=== PATIENT | female | born 1955 | race Caucasian/White ===

== ENCOUNTER → 2023-08-09 | Outpatient (CLI) | payer OTHER ==
[2023-08-09 21:15] LABS: Basophils # (A) 0.07 X 10*3/uL (0.00-0.10); Eosinophils # (A) 0.21 X 10*3/uL (0.04-0.35); Eosinophils % (A) 3.1 %; HCT 40.1 % (37.2-46.3); HGB 12.9 g/dL (12.0-15.0); Lymphocytes # (A) 2.51 X 10*3/uL (0.90-5.00); Lymphocytes % (A) 36.6 %; MCH 28.5 pg (27.0-32.0); MCHC 32.2 g/dL (32.0-37.0); MCV 88.7 FL (80.0-97.0); Mean Platelet Volume 11.2 FL (9.5-12.2); Monocytes # (A) 0.56 X 10*3/uL (0.20-1.00); Monocytes % (A) 8.2 %; NRBC Per 100 WBC 0 X 10*3/uL (0.00-0.01); Platelet Count 290 X 10*3/uL (140-440); RBC 4.52 X 10*6/uL (4.10-5.20); RDW 12.7 % (11.5-14.5); WBC 6.86 X 10*3/uL (4.50-10.00)
== END | disposition home or self-care (01) ==
LOC: LABPAT 15:48
PROVIDERS: ATTEND Orthopaedic Surgery Hand Surgery
DX: Z01.812 Encounter for preprocedural laboratory examination (principal)
CPT/HCPCS: 85025

== ENCOUNTER 2023-08-17 12:18 | Day surgery (SDC) | payer OTHER ==
[2023-08-16 12:10] VITALS: BMI 43.3
--- NOTE | 2023-08-16 13:32 | P.HPOR ---
History of Present Illness H&P Date: 08/16/23 Subjective: This is a 68 year old female that presents today for initial evaluation regarding a 1-1/2-2 month history of a left index finger mass. She states she first noticed a small red nodule develope approximately a month and a half ago. She tried to emmett this at home but noticed an excessive amount of bleeding. She states over the following weeks it ballooned in size. She has been keeping it covered. 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 Physical Examination: LUE: AIN/PIN/Radial/Ulnar/Median motor intact. Radial/Ulnar/Median SILT. 2+/4 Radial/Ulnar pulses palpated. 5/5 APB, 5/5 FDI. 1.5 x 2 cm erythematous, round, raised mass located at the tip of the index finger. Imaging: X-Rays of the left Index finger, 2 view taken in office today demonstrate no acute osseous abnormality. Soft tissue growth seen on the ulnar aspect of the tip of the finger Impression: 1.) Left index finger pyogenic granuloma. Plan: Diagnosis and treatment options were discussed with the patient. I recommend surgical excision of her increasingly left index finger symptomatic pyogenic granuloma. 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 This can be extended if needed. She is given a note to be off work until surgery due to the current prominent size of the mass. Risks and benefits of surgery including bleeding, infection, damage to surrounding tissue, need for further surgery, residual numbness were discussed and the patient wished to go forward with surgery. The patient was agreeable with this plan. -Daniel Whitten DO Orthopedic Hand/Upper Extremity Surgeon Past Medical History Past Medical History: Hearing Disorder / Deafness, Hypertension Additional Past Medical History / Comment(s): Mild hearing loss. History of Any Multi-Drug Resistant Organisms: None Reported Past Surgical History: No Surgical Hx Reported Past Anesthesia/Blood Transfusion Reactions: No Reported Reaction Smoking Status: Never smoker - Past Family History Mother Family Medical History: No Reported History Medications and Allergies Home Medications Medication Instructions Recorded Confirmed Type No Known Home Medications 08/16/23 08/16/23 History Allergies Allergy/AdvReac Type Severity Reaction Status Date / Time nickel Allergy Itching Verified 08/16/23 11:41 Physical Examination Osteopathic Statement: *. No significant issues noted on an osteopathic structural exam other than those noted in the History and Physical/Consult.
[~2023-08-17 12:18] MED LIST: LIDOCAINE 1% (10MG/ML) FOR IV START INTRADERMA PRN
[2023-08-17 13:00] VITALS: TEMP 97.9
[2023-08-17] MEDS: IV FLUID CONTINUATION 1,000 ML IV ONE (13:09)
[2023-08-17] MEDS: ONDANSETRON 4 MG/2 ML VIAL IVP STA (13:13)
[2023-08-17] MEDS: DEXAMETHASONE SOD PHOSPHATE 4 MG/ML 1 ML VIAL IVP STA (13:14)
[2023-08-17] MEDS: LACTATED RINGERS 1,000 ML IV SCH (13:15)
[2023-08-17] MEDS ORDERED: fentaNYL (PF) 50 MCG/ML 2 ML AMP ONE (13:20)
[2023-08-17] MEDS ORDERED: PROPOFOL 10 MG/ML 20 ML VIAL IV ONE (13:20)
[2023-08-17] MEDS: LIDOCAINE 1% INJ 10MG/ML (20 ML MDV) SQ ONE (13:32)
[2023-08-17] MEDS: BUPIVACAINE (PF) 0.5% 30 ML VIAL SQ ONE (13:32)
[2023-08-17 14:03] VITALS: PULSE 69
--- NOTE | 2023-08-17 14:06 | P.OP ---
Date of Procedure: 08/17/23 Preoperative Diagnosis: Left index finger pyogenic granuloma Postoperative Diagnosis: Left index finger pyogenic granuloma Procedure(s) Performed: Left index finger vascular tumor excision Anesthesia: MAC Surgeon: Daniel Whitten Termite Treater #1: Kevon Junior Estimated Blood Loss (ml): 5 Pathology: other (Left index finger mass) Condition: stable Disposition: PACU Description of Procedure: This is a 68 year old female who presents today for surgical excision of her left index finger mass. Risks and benefits of surgery were discussed with the patient including bleeding, damage to surrounding tissue, infection, need for further surgery as well as risks of anesthesia including pulmonary embolism and even and the patient wished to proceed with surgical intervention. The patient was seen in the pre-operative area by myself. Consent and H&P were comp leted and updated. The correct extremity was marked in the pre-operative area by myself and all other questions were answered. Operative Narrative: The patient was brought to the operating room by the department of anesthesia. They remained on the portable stretcher and a rolling hand table was brought to the side of the operative extremity. Pre-operative time out was performed indicating the correct patient, procedure and laterality. All in the room agreed. Pre-operative antibiotics were given prior to skin incision. The patient was then drifted off to sleep by the department of anesthesia. Digital block was performed with 8cc's of 0.5% Lidocaine and 1% lidocaine in a 50:50 mixture. A nonsterile tourniquet was then applied to the operative extremity and the left upper extremity was then prepped and draped in normal sterile fashion. The operative extremity was the exsanguinated with an esmarch bandage and the tourniquet was inflated to 250mmHg. A 15 blade scalpel was used to sharply excise the stalk of the prominent pedunculated grown at the edge of the paronychial fold. There was bleeding present at the base of the stalk and this was cauterized with needle tip bovie. A 15 blade scalpel was then used to excise the mass in eliptical fashion and the mass stalk was excised in it's entirety and sent for pathology. The wound bed was then cauterized. Primary wound closure was performed with 4-0 nylon suture. Soft dressing with adaptic, 4x4's and tube gauze was applied. Tourniquet was let down and no bleeding was appreciated.The patient was then woken by the department of anesthesia and transferred to PACU in stable condition. Kevon VELASCO was present to assist in retraction and manipulation of the hand. Daniel Whitten D.O. Orthopedic Hand/Upper Extremity Surgeon
[2023-08-17 14:21] VITALS: BP 145/84; RESP 16
== END 2023-08-17 14:48 | disposition home or self-care (01) ==
LOC: OR 12:18
PROVIDERS: ATTEND Orthopaedic Surgery Hand Surgery
DX: D18.01 Hemangioma of skin and subcutaneous tissue (principal); I10 Essential (primary) hypertension; Z91.09 Other allergy status, other than to drugs and biological substances
CPT/HCPCS: 88305; 11421; J1100; J0690; J2405; J2001; J3010; J2704; J0665